=== PATIENT | male | born 1965 | race African-American/Black ===

== ENCOUNTER 2019-10-14 22:15 | Emergency (ER) | payer OTHER ==
[~2019-10-14] VITALS: Ht 172.7 cm; Wt 113.4 kg
[2019-10-14 22:40] VITALS: BP 153/88
--- NOTE | 2019-10-14 22:43 | NUR ---
TO LOBBY A/W BED AMBULATORY
--- NOTE | 2019-10-14 23:54 | NUR ---
PT IN WHEELCHAIR TO ER BED 09
--- NOTE | 2019-10-15 00:15 | NUR ---
PT COMPLETE ASSESSMENT DONE. PT SEATED UPRIGHT IN BED. BED RAIL X1 UP. WILL CONTINUE TO MONITOR.
--- NOTE | 2019-10-15 02:15 | NUR ---
PT SEATED UPRIGHT. AWAKE AND ALERT. WILL CONTINUE TO MONITOR. NO C/O AT THIS TIME.
[2019-10-15] MEDS ORDERED: KETOROLAC 30 MG/ML VIAL IVP ONE (02:35)
[2019-10-15] MEDS ORDERED: NACL 0.9% 1,000 ML IV ONE (02:35)
[2019-10-15 03:07] LABS: BASOPHILS # (AUTO) 0.1 K/uL (0.00-0.22); BASOPHILS % (AUTO) 1.4 % (0.0-2.0); EOSINOPHILS # (AUTO) 0.3 K/uL (0-0.4); EOSINOPHILS % (AUTO) 3.8 % (0.0-4.0); HEMATOCRIT 35.8 % (36-52); HEMOGLOBIN 11.8 g/dL (12.0-18.0); LYMPHOCYTES # (AUTO) 2.1 K/uL (2.0-11.5); LYMPHOCYTES % (AUTO) 25.8 % (20.5-51.1); MEAN CORPUSCULAR HEMOGLOBIN 30 pg (27-31); MEAN CORPUSCULAR HGB CONC 33 g/dL (33-37); MEAN CORPUSCULAR VOLUME 91.9 fL (80-94); MONOCYTES # (AUTO) 0.7 K/uL (0.8-1.0); MONOCYTES % (AUTO) 8.9 % (1.7-9.3); NEUTROPHILS % (AUTO) 60.1 % (42.2-75.2); PLATELET COUNT (AUTO) 433 K/uL (140-450); RED CELL DISTRIBUTION WIDTH 13.5 % (11.6-13.7); WHITE BLOOD COUNT (AUTO) 8.3 K/uL (4.8-10.8)
[2019-10-15 03:10] LABS: APPEARANCE,URINE CLEAR (CLEAR); BILIRUBIN,URINE 1+ (NEGATIVE); BLOOD, URINE NEGATIVE (NEGATIVE); COLOR,URINE YELLOW (YELLOW); LEUKOCYTE ESTERASE ,URINE NEGATIVE (NEGATIVE); NITRITE, URINE NEGATIVE (NEGATIVE); PH,URINE 5.5 (5.0-9.0); UGLUCOSE NEGATIVE (NEGATIVE)
[2019-10-15 03:15] LABS: BARBITURATE, URINE NEG. ng/ml (NEG <=200); BENZODIAZEPINE, URINE NEG. ng/mL (NEG <=200); CANNABINOID, URINE NEG. ng/mL (NEG <=50); COCAINE, URINE NEG. ng/mL (NEG <=300); OPIATE, URINE NEG. ng/mL (NEG <=2000); PHENCYCLIDINE SCREEN,URINE NEG. ng/mL (NEG <=25)
[2019-10-15 03:17] LABS: ANION GAP 14.4 (8-16); CARBON DIOXIDE 24.3 mmol/L (21-32); CREATININE 1.2 mg/dL (0.7-1.3); POTASSIUM 3.7 mmol/L (3.5-5.1)
[2019-10-15 03:24] LABS: TOTAL BILIRUBIN 0.3 mg/dL (0.0-1.0)
[2019-10-15 03:33] LABS: RBC,URINE 0-5 /HPF (0-5); WBC,URINE 0-5 /HPF (0-5)
[2019-10-15] MEDS ORDERED: diphenhydrAMINE 50 MG/ML VIAL IVP ONE (04:40)
[2019-10-15] MEDS ORDERED: KETOROLAC 15 MG/ML VIAL IVP ONE (04:40)
[2019-10-15 05:35] VITALS: BP 147/66
--- NOTE | 2019-10-15 05:35 | NUR ---
Patient discharged with v/s stable. Written and verbal after care instructions ABOUT MYALGIA AND HIVES given and explained. Patient alert, oriented and verbalized understanding of instructions. Ambulatory with steady gait. All questions addressed prior to discharge. ID band removed. Patient advised to follow up with PMD. Rx of NAPROSYN given. Patient educated on indication of medication including possible reaction and side effects. Opportunity to ask questions provided and answered.
== END 2019-10-15 05:35 | disposition home or self-care (01) ==
LOC: MED 22:15
DX: L50.9 Urticaria, unspecified (principal); M79.10 Myalgia, unspecified site; I10 Essential (primary) hypertension
CPT/HCPCS: 36415; 80053; 80305; 81001; 85025; 96374; 96375; 96376; 99283; J1885

== ENCOUNTER 2023-02-25 13:00 | Emergency (ER) | payer OTHER ==
[~2023-02-25] VITALS: Ht 170.2 cm; Wt 90.7 kg
--- NOTE | 2023-02-25 13:03 | NUR ---
PT BIBA TO BED 5
[2023-02-25 13:11] VITALS: BP 150/109
--- NOTE | 2023-02-25 13:19 | NUR ---
MARCI SOSA AT BEDSIDE FOR EVALUATION
[2023-02-25] MEDS ORDERED: ACETAMINOPHEN 325 MG TAB PO ONE (13:25)
[2023-02-25] MEDS ORDERED: FLUORESCEIN OPTH STRIP 1 MG OP ONE (13:25)
[2023-02-25] MEDS ORDERED: TETRACAINE HCL/PF 0.5% OPTH 4 ML BTL OP ONE (13:25)
--- NOTE | 2023-02-25 13:25 | NUR ---
PT REFUSED TO ANSWER QUESTION ON WHAT MEDS HE TAKES
[2023-02-25] MEDS ORDERED: TOMOMETER 1 DEV DEV MC ONE (13:55)
[2023-02-25] MEDS ORDERED: VIGOS OP (14:54)
[2023-02-25] MEDS ORDERED: ACET-8905 PO (14:54)
[2023-02-25] MEDS ORDERED: IBUP-2213 PO (14:54)
[2023-02-25 15:11] VITALS: BP 140/80
--- NOTE | 2023-02-25 15:11 | NUR ---
Patient discharged with v/s stable. Written and verbal after care instructions FOR CORNEAL ABRASION given and explained. Patient alert, oriented and verbalized understanding of instructions. Ambulatory with steady gait. All questions addressed prior to discharge. ID band removed. Patient advised to follow up with PMD. Rx of HYDROCODONE, IBUPROFEN AND VIGAMOX given. Opportunity to ask questions provided and answered.
--- NOTE | 2023-02-25 15:29 | NUR ---
The patient's care was reviewed and supervised by Tiffany Jennings RN.
== END 2023-02-25 15:11 | disposition home or self-care (01) ==
LOC: MED 13:00
DX: S05.02XA Injury of conjunctiva and corneal abrasion without foreign body, left eye, initial encounter (principal); S05.01XA Injury of conjunctiva and corneal abrasion without foreign body, right eye, initial encounter; X58.XXXA Exposure to other specified factors, initial encounter; Y93.89 Activity, other specified; Y92.89 Other specified places as the place of occurrence of the external cause; Y99.8 Other external cause status
CPT/HCPCS: 99284